=== PATIENT | female | born 1975 | race Two or more races ===

== ENCOUNTER → 2016-09-30 | Outpatient (CLI) | payer MEDICAID | LOC: FIMAGING 15:37 | DX: Z12.31 Encounter for screening mammogram for malignant neoplasm of breast (principal) | CPT/HCPCS: G0202-52 ==

== ENCOUNTER 2017-05-31 16:30 | Emergency (ER) | payer MEDICAID ==
[2017-05-31] MEDS ORDERED: ACETAMINOPHEN 500 MG TAB PO ONE (17:12)
--- NOTE | 2017-05-31 17:13 | EDPHY ---
H & P Smoking Status: Never smoked Time Seen by Provider: 05/31/17 16:57 HPI/ROS: CHIEF COMPLAINT: Fever, cough, vomiting HISTORY OF PRESENT ILLNESS: 41-year-old female presents to the emergency department by private vehicle with fever, cough and vomiting since Monday, 5 days ago. Patient states symptoms started Monday evening with fever and generalized body aches. She had a mild cough. She saw her primary care provider on Monday, 2 days ago, and was told that this was a viral illness and likely would resolve on its own within 2 weeks. Patient states that she was coughing so hard that she was vomiting. She vomited multiple times yesterday as well. She feels mildly nauseous although has not vomited since yesterday. She feels very weak. She is a type 2 diabetic on insulin. Her blood sugars have been "mildly elevated ". No abdominal pain. No chest pain or difficulty breathing. No back pain. Patient did have some urinary frequency. No dysuria. No abdominal pain. REVIEW OF SYSTEMS: Constitutional: Fever, chills Eyes: No double or blurry vision. ENT: No sore throat. Respiratory: Cough. No shortness of breath Cardiac: No chest pain. Gastrointestinal: Vomiting. No abdominal pain or diarrhea. Genitourinary: No dysuria. Musculoskeletal: No neck or back pain. Skin: No rashes. Neurological: No headache. (Fern Cord[place]) Past Medical/Surgical History: Type 2 diabetic on insulin, breast cancer right breast 2011 treated with mastectomy, chemo and radiation. Last PET scan 01/2017 (Fern Cord[place]) Social History: and lives in [place] (Fern [place]) Physical Exam: General Appearance: Alert, no distress. Febrile with a temperature of 39.6degrees orally. Tachycardic with heart rate 122, blood pressure 133/64, 94 % on room air. Nontoxic appearing. spanish interpreter also at bedside. Eyes: Pupils equal and round. Extraocular motions are all intact. ENT: Mouth: Mucous membranes moist. Respiratory: No wheezing, rhonchi, or rales, lungs are clear to auscultation. Cardiovascular: Regular rate and rhythm. No murmur. Gastrointestinal: Abdomen is obese and soft and nontender, no masses, no rebound or guarding, bowel sounds normal. Neurological: Alert and oriented x 3, cranial nerves II through XII grossly intact Skin: Warm and dry, no rashes. Musculoskeletal: Nontender to palpate along the cervical, thoracic or lumbar spine. Neck is supple. Extremities: Full range of motion and no peripheral edema. Psychiatric: Patient is oriented X 3, there is no agitation. (Fern Cord[place]) Constitutional: Initial Vital Signs Temperature (C) 39.4 C H 05/31/17 16:38 Heart Rate 122 H 05/31/17 16:38 Respiratory Rate 20 05/31/17 16:38 Blood Pressure 133/64 H 05/31/17 16:38 O2 Sat (%) 94 05/31/17 16:38 O2 Delivery Mode Room Air Allergies/Adverse Reactions: ibuprofen Allergy (Verified 05/31/17 16:43) Home Medications: Medication Instructions Recorded Lantus 100 UNITS/ML (*) 05/31/17 Metformin HCl 05/31/17 Victoza 3-Xavi 05/31/17 Medical Decision Making - Diagnostics Imaging: I viewed and interpreted images myself - Diagnostics Imaging Results: Imaging Impressions Chest X-Ray 05/31/17 17:13 Impression: No source for acute chest pain identified. ED Course/Re-evaluation: 41-year-old female presents with fever. Patient had normal venous lactate of 1.2. She was initially given 1000 mg of Tylenol p. o.. CBC was within normal limits chemistries were within normal limits. Her blood sugar however was over 170. Urinalysis revealed no signs of infection and chest x-ray revealed no signs of infection. Influenza was negative. Patient presents with fever. The case was discussed with Dr. Ronnie Valerio, secondary supervising physician, who also evaluated the patient. He recommended giving the patient 600 mg of ibuprofen. This was listed as an allergy, however she took ibuprofen when she was at her primary care provider's office on Monday, 2 days ago, and after she took it she thought she was having some difficulty breathing. She had no reports of difficulty breathing in the emergency department. This did bring her fever down. She was feeling better. She received 2 L of IV normal saline. She is comfortable being discharged home. I did encourage close follow-up with her primary care provider this week and she should return if she develops chest pain, difficulty breathing, vomiting , back pain, or if she felt worse in any way. She was comfortable with this plan. spanish interpreter, Lceo, was also used at bedside. (Fern [place]) Differential Diagnosis: Including but not limited to influenza, viral upper respiratory infection, bronchitis, pneumonia, sepsis, urinary tract infection, pyelonephritis (Fern Cord[place]) Other Provider: I did evaluate this patient independently. She is well appearing and not toxic. She is slightly tachycardic which improved with antipyretics and hydration. She was not hypoxic. She ambulated here in the emergency depart without difficulty. (Ronnie Valerio) - Data Points Laboratory Results: Laboratory Results 05/31/17 17:07 05/31/17 17:07 05/31/17 05/31/17 05/31/17 18:10 17:30 17:07 WBC RBC Hgb Hct MCV MCH MCHC RDW Plt Count MPV Neut % (Auto) Lymph % (Auto) [place] % (Auto) Eos % (Auto) Baso % (Auto) Nucleat RBC Rel Count Absolute Neuts (auto) Absolute Lymphs (auto) Absolute Monos (auto) Absolute Eos (auto) Absolute Basos (auto) Absolute Nucleated RBC Immature Gran % Immature Gran # VBG Lactic Acid Sodium 138 mEq/L mEq/L (134-144) Potassium 3.6 mEq/L mEq/L (3.5-5.2) Chloride 103 mEq/L mEq/L (97-110) Carbon Dioxide 21 mEq/l L mEq/l (22-31) Anion Gap 14 mEq/L mEq/L (8-16) BUN 6 mg/dL L mg/dL (7-23) Creatinine 0.5 mg/dL L mg/dL (0.6-1.0) Estimated GFR > 60 Glucose 171 mg/dL H mg/dL (70-100) Calcium 8.8 mg/dL mg/dL (8.5-10.4) Urine Color PALE YELLOW Urine Appearance CLEAR Urine pH 8.0 H (5.0-7.5) Ur Specific [place] 1.005 (1.002-1.030) Urine Protein NEGATIVE (NEGATIVE) Urine Ketones NEGATIVE (NEGATIVE) Urine Blood NEGATIVE (NEGATIVE) Urine Nitrate NEGATIVE (NEGATIVE) Urine Bilirubin NEGATIVE (NEGATIVE) Urine Urobilinogen NEGATIVE EU EU (0.2-1.0) Ur Leukocyte Esterase NEGATIVE (NEGATIVE) Urine RBC 1-3 /hpf /hpf (0-3) Urine WBC 1-3 /hpf /hpf (0-3) Ur Epithelial Cells NONE SEEN /lpf /lpf (NONE-1+) Urine Glucose NEGATIVE (NEGATIVE) Nasal Influenza A PCR NEGATIVE FOR FLU A (NEGATIVE) Nasal Influenza B PCR NEGATIVE FOR FLU B (NEGATIVE) 05/31/17 05/31/17 17:07 17:07 WBC 7.85 10^3/uL 10^3/uL (3.80-9.50) RBC 4.59 10^6/uL 10^6/uL (4.18-5.33) Hgb 11.9 g/dL L g/dL (12.6-16.3) Hct 35.8 % L % (38.0-47.0) MCV 78.0 fL L fL (81.5-99.8) MCH 25.9 pg L pg (27.9-34.1) MCHC 33.2 g/dL g/dL (32.4-36.7) RDW 14.7 % % (11.5-15.2) Plt Count 202 10^3/uL 10^3/uL (150-400) MPV 9.6 fL fL (8.7-11.7) Neut % (Auto) 71.0 % % (39.3-74.2) Lymph % (Auto) 20.0 % % (15.0-45.0) [place] % (Auto) 7.8 % % (4.5-13.0) Eos % (Auto) 0.3 % L % (0.6-7.6) Baso % (Auto) 0.4 % % (0.3-1.7) Nucleat RBC Rel Count 0.0 % % (0.0-0.2) Absolute Neuts (auto) 5.58 10^3/uL 10^3/uL (1.70-6.50) Absolute Lymphs (auto) 1.57 10^3/uL 10^3/uL (1.00-3.00) Absolute Monos (auto) 0.61 10^3/uL 10^3/uL (0.30-0.80) Absolute Eos (auto) 0.02 10^3/uL L 10^3/uL (0.03-0.40) Absolute Basos (auto) 0.03 10^3/uL 10^3/uL (0.02-0.10) Absolute Nucleated RBC 0.00 10^3/uL 10^3/uL (0-0.01) Immature Gran % 0.5 % % (0.0-1.1) Immature Gran # 0.04 10^3/uL 10^3/uL (0.00-0.10) VBG Lactic Acid 1.2 mmol/L mmol/L (0.7-2.1) Sodium Potassium Chloride Carbon Dioxide Anion Gap BUN Creatinine Estimated GFR Glucose Calcium Urine Color Urine Appearance Urine pH Ur Specific [place] Urine Protein Urine Ketones Urine Blood Urine Nitrate Urine Bilirubin Urine Urobilinogen Ur Leukocyte Esterase Urine RBC Urine WBC Ur Epithelial Cells Urine Glucose Nasal Influenza A PCR Nasal Influenza B PCR Medications Given: Discontinued Medications Acetaminophen (Tylenol) 1,000 mg PO EDNOW ONE Stop: 05/31/17 17:13 Last Admin: 05/31/17 17:28 Dose: 1,000 mg Sodium Chloride (Ns) 1,000 mls @ 0 mls/hr IV ONCE ONE PRN Reason: Wide Open Stop: 05/31/17 17:18 Last Admin: 05/31/17 17:29 Dose: 1,000 mls Sodium Chloride (Ns) 1,000 mls @ 0 mls/hr IV ONCE ONE PRN Reason: Wide Open Stop: 05/31/17 19:05 Last Admin: 05/31/17 19:13 Dose: 1,000 mls Ibuprofen (Motrin) 800 mg PO EDNOW ONE Stop: 05/31/17 19:07 Last Admin: 05/31/17 19:12 Dose: 800 mg Departure - Departure Disposition: Home, Routine, Self-Care Clinical Impression: Cough Fever Qualifiers: Fever type: unspecified Qualified Code(s): R50.9 - Fever, unspecified Condition: Good Instructions: Fever in Adults (ED), Acute Cough (ED) Additional Instructions: Adult Pain & Fever Control: We recommend Acetaminophen (Tylenol) and Ibuprofen (Motrin,Advil) for pain and fever control. When fever is high or pain severe, both drugs can be used at the same time, but at different intervals. Please note the time differences. Your dose is: Acetaminophen 1000mg every 4 to 6 hours Ibuprofen 600mg every 8 hours with food Note: do not take Acetaminophen with Hydrocodone (Vicodin, Lortab) or Oycodone (Percocet). These medications also contain Acetaminophen. No more than 3000mg of Acetaminophen should be taken in 24 hours (for an adult). Control De Dolor y Fiebre: Les recomendamos Acetaminofina (Tylenol) y Ibuprofeno (Motrin, Advil) para dolor y control de la fiebre. Cuando la fiebre es chandu o el dolor es kaia, ambas drogas puede ser usadas a la misma vez. Por favor tenga en cuenta la diferencia de horarios en el cual deben ser tomadas. Horn dosis es: Acetaminofina [1000]mg cada 4-6 horas Ibuprofeno [600]mg cada 8 horas con comida No tome Acetaminofina con Hydrocodone (Vicodin, Lortab) o Oxycodone (Percocet. Estas medicinas tambien contienen Acetaminofina. No mas de 4000mg de Acetaminofina deben ser tomados en 24 horas. Referrals: [facility] [Other] - 1-2 days without fail
[2017-05-31] MEDS ORDERED: NS 1,000 ML IV ONE ×2 (17:17→19:04)
[2017-05-31 17:18] LABS: % IMMATURE GRANULYOCYTES 0.5 % (0.0-1.1); ABSOLUTE IMMATURE GRANULOCYTES 0.04 10^3/uL (0.00-0.10); ADD DIFF? NO; ADD MORPH? NO; ADD SCAN? NO; ATYPICAL LYMPHOCYTE FLAG 20 (0-99); FRAGMENT RBC FLAG 0 (0-99); HEMATOCRIT 35.8 % (38.0-47.0); HEMOGLOBIN 11.9 g/dL (12.6-16.3); LEFT SHIFT FLG 50 (0-99); LIPEMIA HEMOLYSIS FLAG 80 (0-99); MEAN CELL HEMOGLOBIN 25.9 pg (27.9-34.1); MEAN CELL HEMOGLOBIN CONCENTR. 33.2 g/dL (32.4-36.7); MEAN PLATELET VOLUME 9.6 fL (8.7-11.7); PLATELET CLUMPS FLAG 0 (0-99); PLATELET COUNT 202 10^3/uL (150-400); RED BLOOD CELL COUNT 4.59 10^6/uL (4.18-5.33); RED CELL DISTRIBUTION WIDTH 14.7 % (11.5-15.2)
[2017-05-31 17:35] LABS: ANION GAP 14 mEq/L (8-16); CALCIUM 8.8 mg/dL (8.5-10.4); CARBON DIOXIDE 21 mEq/l (22-31); CHLORIDE 103 mEq/L (97-110); CREATININE 0.5 mg/dL (0.6-1.0); GLOMERULAR FILTRATION RATE > 60; GLUCOSE 171 mg/dL (70-100); POTASSIUM 3.6 mEq/L (3.5-5.2); SODIUM 138 mEq/L (134-144)
[2017-05-31 18:23] LABS: COLOR PALE YELLOW; LEUKOCYTE ESTERASE,URINE NEGATIVE (NEGATIVE); NITRITE,URINE NEGATIVE (NEGATIVE)
[2017-05-31] MEDS ORDERED: IBUPROFEN 800 MG TAB PO ONE (19:06)
[2017-05-31 20:13] VITALS: BP 104/84; PULSE 104; RESP 18; TEMP 99; O2SAT 94
== END 2017-05-31 20:31 | disposition home or self-care (01) ==
DX: R50.9 Fever, unspecified (principal); R05 Cough; E11.9 Type 2 diabetes mellitus without complications; R11.10 Vomiting, unspecified; Z79.4 Long term (current) use of insulin; Z79.84 Long term (current) use of oral hypoglycemic drugs; Z85.3 Personal history of malignant neoplasm of breast

== ENCOUNTER → 2017-10-02 | Outpatient (CLI) | payer MEDICAID | LOC: FIMAGING 15:02 | PROVIDERS: ATTEND Internal Medicine Hematology & Oncology | DX: Z12.31 Encounter for screening mammogram for malignant neoplasm of breast (principal); Z85.3 Personal history of malignant neoplasm of breast ==

== ENCOUNTER → 2017-11-08 | Outpatient (CLI) | payer MEDICAID | LOC: FIMAGING 14:05 | PROVIDERS: ATTEND Internal Medicine Hematology & Oncology | DX: R92.8 Other abnormal and inconclusive findings on diagnostic imaging of breast (principal) ==

== ENCOUNTER → 2018-10-03 | Outpatient (CLI) | payer MEDICAID | LOC: FIMAGING 14:59 | PROVIDERS: ATTEND Internal Medicine Hematology & Oncology | DX: Z12.31 Encounter for screening mammogram for malignant neoplasm of breast (principal); Z85.3 Personal history of malignant neoplasm of breast; Z90.11 Acquired absence of right breast and nipple ==